=== PATIENT | female | born 1975 | race Two or more races ===

== ENCOUNTER 2017-12-27 20:12 | Emergency (ER) | payer OTHER ==
[~2017-12-27] VITALS: Ht 157.5 cm; Wt 58.1 kg
[~2017-12-27 20:12] MED LIST: CEFTIN500 MG PO; ORPH100T PO; URIN D.S. TABLE1 TAB PO
[2017-12-28] MEDS ORDERED: DOLOGESIC-DF 51 EACH PO (01:52)
[2017-12-30] MEDS ORDERED: ZIAC 2.5-6.251 EACH PO (00:08)
[2017-12-30] MEDS ORDERED: NIFEDIPINE ER30 M1 PO (05:15)
== END 2017-12-28 01:57 | disposition home or self-care (01) ==
LOC: ER 20:12
DX: I10 Essential (primary) hypertension (principal); R51 Headache

== ENCOUNTER → 2017-12-28 | Emergency (ER) | payer OTHER ==
[~2017-12-28] VITALS: Ht 157.5 cm; Wt 58.1 kg
[~2017-12-28] MED LIST changes: +DOLOGESIC-DF 51 EACH PO; +NIFEDIPINE ER30 M1 PO; +ZIAC 2.5-6.251 EACH PO
== END | disposition left against medical advice (07) ==
LOC: ER 22:12
DX: Z53.20 Procedure and treatment not carried out because of patient's decision for unspecified reasons (principal)

== ENCOUNTER → 2017-12-29 | Emergency (ER) | payer OTHER ==
[~2017-12-29] VITALS: Ht 157.5 cm; Wt 59.0 kg
== END | disposition home or self-care (01) ==
LOC: ER 23:53
DX: I10 Essential (primary) hypertension (principal)

== ENCOUNTER 2018-10-12 23:15 | Emergency (ER) | payer OTHER ==
[~2018-10-12] VITALS: Ht 157.5 cm; Wt 56.7 kg
[2018-10-13] MEDS ORDERED: TENCON 50-3251 EACH PO (04:38)
== END 2018-10-13 04:53 ==
LOC: ER 23:15
DX: G44.209 Tension-type headache, unspecified, not intractable (principal)

== ENCOUNTER 2018-12-30 10:54 | Emergency (ER) | payer OTHER ==
[~2018-12-30] VITALS: Ht 157.5 cm; Wt 57.2 kg
[~2018-12-30 10:54] MED LIST changes: +TENCON 50-3251 EACH PO
== END 2018-12-30 13:00 | disposition home or self-care (01) ==
LOC: ER 10:54
DX: N39.0 Urinary tract infection, site not specified (principal)

== ENCOUNTER 2019-02-27 16:36 | Emergency (ER) | payer OTHER ==
[~2019-02-27] VITALS: Ht 160 cm; Wt 56.7 kg
== END 2019-02-27 21:22 | disposition home or self-care (01) ==
LOC: ER 16:36
DX: J06.9 Acute upper respiratory infection, unspecified (principal)

== ENCOUNTER 2020-12-03 00:03 | Emergency (ER) | payer OTHER ==
[~2020-12-03] VITALS: Ht 157.5 cm; Wt 56.7 kg
[2020-12-03] MEDS ORDERED: COZAAR25 MG (00:17)
== END 2020-12-03 03:19 | disposition home or self-care (01) ==
LOC: ER 00:03
DX: I16.0 Hypertensive urgency (principal); I10 Essential (primary) hypertension

== ENCOUNTER → 2021-02-12 | Emergency (ER) | payer OTHER ==
[~2021-02-12] VITALS: Ht 160 cm; Wt 56.7 kg
[~2021-02-12] MED LIST changes: +COZAAR25 MG; +KETO10TA2 PO
== END | disposition home or self-care (01) ==
LOC: ER 00:53
DX: M25.511 Pain in right shoulder (principal)

== ENCOUNTER → 2022-09-15 | Emergency (ER) | payer OTHER ==
[~2022-09-15] VITALS: Ht 160 cm; Wt 56.7 kg
[~2022-09-15] MED LIST changes: +LOSARTAN-HCTZ1 EAC1 PO
== END | disposition home or self-care (01) ==
LOC: ER 22:39
DX: I16.1 Hypertensive emergency (principal); I10 Essential (primary) hypertension; E05.00 Thyrotoxicosis with diffuse goiter without thyrotoxic crisis or storm

== ENCOUNTER 2024-06-20 22:15 | Emergency (ER) | payer OTHER ==
[~2024-06-20] VITALS: Ht 160 cm; Wt 56.7 kg
[~2024-06-20 22:15] MED LIST changes: +METOPROLOL SUCC25 MG
[2024-06-20] MEDS ORDERED: LABETALOL HCL 100 MG/20 ML ML IV PUSH ONE (23:30)
[2024-06-20] MEDS ORDERED: LABETALOL HCL 100 MG/20 ML ML ONE (23:39)
[2024-06-20 23:45] LABS: HEMATOCRIT 37.9 % (36.0-45.00); HEMOGLOBIN 12.7 g/dL (12.0-15.00); MEAN CELL VOLUME 82.5 fL (80.00-100.00); MEAN CORPUSCULAR HEMOGLOBIN 27.7 pg (27.00-32.0); MEAN CORPUSCULAR HGB CONC 33.6 g/dl (32.0-36.0); PLATELET COUNT 217 K/uL (150-450); RED BLOOD COUNT 4.59 M/uL (4.00-6.00); RED CELL DISTRIBUTION WIDTH 14.9 % (11.5-14.5)
[2024-06-20] MEDS ORDERED: LORazepam 2 MG/ML VIAL IM ONE (23:45)
[2024-06-20] MEDS ORDERED: LevETIRAcetam 500 MG/5 ML VIAL IV ONE (23:45)
[2024-06-21 00:07] LABS: INR 1.05; PARTIAL THROMBOPLASTIN TIME 28.9 SECONDS (22.0-34.0); PROTHROMBIN TIME 11.4 SECONDS (9.0-11.5)
[2024-06-21 00:14] LABS: ALBUMIN 3.7 gm/dL (3.4-5.0); BILIRUBIN TOTAL 0.38 mg/dL (0.3-1.2); CALCIUM 9.3 mg/dL (8.5-10.1); CREATININE SERUM 0.56 mg/dL (0.55-1.02); GFR 116.04; GLOBULINA 3.4 G/DL (2.4-3.5); POTASSIUM 3.54 mEq/L (3.5-5.1); TOTAL PROTEIN 7.1 gm/dL (6.4-8.2)
[2024-06-21] MEDS ORDERED: LABETALOL HCL 100 MG/20 ML ML ONE (00:39)
[2024-06-21] MEDS ORDERED: LABETALOL HCL 100 MG/20 ML ML IV PUSH STA (00:41)
[2024-06-21] MEDS ORDERED: hydrOXYzine PAMOATE 50 MG CAPSULE PO STA (00:42)
[2024-06-21] MEDS ORDERED: hydrOXYzine PAMOATE 50 MG CAPSULE PO ONE (00:45)
[2024-06-21 00:46] LABS: T4 FREE 1.11 NG/ML (0.76-1.46); TSH 0.565 uIU/mL (0.358-3.74)
[2024-06-21 01:17] VITALS: BP 147/83; O2SAT 100
[2024-06-21] MEDS ORDERED: NORFLEX100MG PO (04:10)
== END 2024-06-21 04:17 ==
LOC: ER 22:17
PROVIDERS: General Practice
DX: I16.9 Hypertensive crisis, unspecified (principal); I10 Essential (primary) hypertension; E03.9 Hypothyroidism, unspecified; Z20.822 Contact with and (suspected) exposure to COVID-19

== ENCOUNTER 2024-12-18 14:26 | Emergency (ER) | payer OTHER ==
[~2024-12-18] VITALS: Ht 152.4 cm; Wt 63.5 kg
[~2024-12-18 14:26] MED LIST changes: +NORFLEX100MG PO
[2024-12-18 16:02] LABS: HEMATOCRIT 38.8 % (36.0-45.00); MEAN CELL VOLUME 86.1 fL (80.00-100.00); MEAN CORPUSCULAR HEMOGLOBIN 28.9 pg (27.00-32.0); MEAN CORPUSCULAR HGB CONC 33.5 g/dl (32.0-36.0); PLATELET COUNT 256 K/uL (150-450); RED CELL DISTRIBUTION WIDTH 13.4 % (11.5-14.5)
[2024-12-18 16:37] LABS: ALBUMIN 3.9 gm/dL (3.4-5.0); BILIRUBIN TOTAL 0.23 mg/dL (0.3-1.2); CALCIUM 9.4 mg/dL (8.5-10.1); CREATININE SERUM 0.62 mg/dL (0.55-1.02); GFR 102.74; GLOBULINA 4.1 G/DL (2.4-3.5); POTASSIUM 4.12 mEq/L (3.5-5.1)
== END 2024-12-18 18:13 | disposition home or self-care (01) ==
LOC: ER 14:29
DX: F41.8 Other specified anxiety disorders (principal); E05.80 Other thyrotoxicosis without thyrotoxic crisis or storm